=== PATIENT | male | born 1950 | race Caucasian/White ===

== ENCOUNTER → 2019-09-18 07:55 | Outpatient (CLI) | payer OTHER, MEDICARE | END | disposition home or self-care (01) | LOC: D.HCCECHO 07:55 → D.HCCARDIO 09:00 | PROVIDERS: ATTEND Internal Medicine Cardiovascular Disease | DX: I20.9 Angina pectoris, unspecified (principal) ==

== ENCOUNTER 2019-10-07 07:05 | Outpatient (CLI) | payer OTHER, MEDICARE ==
[~2019-10-07] VITALS: Ht 180.3 cm; Wt 79.5 kg
--- NOTE | ~2019-10-07 | HEMODYNAMI ---
PATIENT:DANIEL ACOSTA MEDICAL RECORD: [id number] : 50 LOCATION:[facility] ADMISSION DATE: 10/07/19 Generatedon:10/07/20199:40 Patient name: DANIEL ACOSTA Patient #: [id number] SSN: [id number] : 1950 Date of study: 10/07/2019 Page: Of Hemodynamic Procedure Report Patient Data Patient Demographics Procedure consent was obtained First Name: DANIEL Gender: Male Last Name: DAVE : 1950 Patient #: [id number] Age: 69 year(s) Race: SSN: [id number] Additional ID: [id number] Contact details [address]: [address] [place] [address] State: [place] City: [place] Zip code: [address] Past Medical History Performed procedures and imaging results Date Procedure Procedure Results Comments 09/18/2019 Stress testing Positive->Intermediate with SPECT MPI risk Allergies Allergen Reaction Date Comments Reported Other allergy 10/07/2019 PRAZOSIN Admission Admission Data Admission Date: 10/07/2019 Admission Time: 7:05 Arrival Date: 10/07/2019 Arrival Time: 0:00 Admit Source: Other Insurance Payor: Private health insurance [facility] #: [id number] Height (in.): 71 BSA: 1.99 (m2) Height (cm.): 180.34 BMI: 24.46 (kg/m2) Weight (lbs.): 175.36 Weight (kg.): 79.54 Lab Results Lab Result Date: 10/07/2019 Lab Result Time: 0:00 Biochemistry Name Units Result Min Max BUN mg/dl 16 --(---*)-- 7 18 Creatinine mg/dl 0.9 --(-*--)-- 0.6 1.3 eGFR ml/min 88.54588 -*(----)-- 90 120 NONAFRICAN CBC Name Units Result Min Max Hematocrit % 41.2 -*(----)-- 42 54 Hemoglobin g/dl 13.6 --(*---)-- 13.5 17.5 Procedure Procedure Types Cath Procedure Diagnostic Procedure [facility] w[facility] Procedure Description Procedure Date Procedure Date: 10/07/2019 Procedure Start Time: 9:25 Procedure End Time: 9:39 Procedure Staff Name Function Jg Gomez MD Performing Physician Elder Caruso RN Nurse Celina Acuña RT Monitor Kang Mendosa RT Scrub Procedure Data Cath Procedure Fluoroscopy Diagnostic fluoroscopy Total fluoroscopy Time: 2.4 time: 2.4 min min Diagnostic fluoroscopy Total fluoroscopy dose: 464 dose: 464 mGy mGy Contrast Material Contrast Material Type Amount (ml) Isovue 370 53 Entry Location Entry Primary Successful Side Size Upsize Upsize Entry Closure [place] ccessful Closure Location (Fr) 1 (Fr) 2 (Fr) Remarks Device Remarks Radial Right 6 Fr Mechanical artery Short Compression Estimated blood loss: 5 ml Diagnostic catheters Device Type Used For End Catheter Placement DIAGNOSTIC Hung 110cm Procedure 5Fr catheter ([id number]) Procedure Complications No complications Procedure Medications Medication Administration Route Dosage 0.9% NaCl I.V. 100 ml/hr Oxygen etCO2 Nasal cannula 2 l/min Heparin Flush Bag added to field 2 bags (1000units/500ml NS) Lidocaine 2% added to field 20 Radial Cocktail added to field 1 syringe (Verapamil 2mg/Nitro 400mcg/Heparin 1500units) Versed I.V. 2 mg Fentanyl I.V. 100 mcg Radial Cocktail I.A. 1 syringe (Verapamil 2mg/Nitro 400mcg/Heparin 1500units) Hemodynamics Rest BSA: 1.99 (m2) HGB: 13.6 (g/dl) O2 Consumption: Estimated: 227.08 (ml/min) O2 Co nsumption indexed: Estimated:114.11 (ml/min/m) Heart Rate: 65 (bpm) Pressure Samples Time Site Value (mmHg) Purpose Heart Use Rate(bpm) 9:30 LV 102/16,25 Snapshot 87 Gradients Valve Time Site Site Mean SEP/DFP Peak To Heart Use 1 2 (mmHg) (sec/min) Peak Rate (mmHg) (bpm) Aortic 9:31 LV AO 89 Snapshots Pre Cath Intra NCS Post Cath Vital Signs Time Heart Resp SPO2 etCO2 NIBP (mmHg) Rhythm Pain Sedation Rate (ipm) (%) (mmHg) Status Level (bpm) 9:10:48 66 13 100 0 136/84(100) NSR 0 (11) 10(A) , No pain 9:15:02 68 17 99 34.3 134/83(112) NSR 0 (11) 10(A) , No pain 9:19:16 65 11 99 39.5 139/81(99) NSR 0 (11) 10(A) , No pain 9:23:28 69 19 98 0 123/81(98) NSR 0 (11) 10(A) , No pain 9:27:44 72 10 97 11.2 132/85(95) NSR 0 (11) 9(A) , No pain 9:32:02 74 10 98 36.5 135/64(89) NSR 0 (11) 9(A) , No pain 9:36:16 71 10 98 35 120/75(88) NSR 0 (11) 10(A) , No pain Medications Time Medication Route Dose Verified Delivered Reason Notes Effectiveness by by 9:09:41 0.9% NaCl I.V. 100 Elder Elder Per ml/hr Zuly Caruso physician RN RN 9:09:54 Oxygen etCO2 2 l/min Elder Elder for low 02 Nasal Lorigan Lorigan sats cannula RN RN 9:10:05 Heparin Flush added 2 bags Elder Elder used for Bag to Zuly Caruso procedure (1000units/500ml field RN RN NS) 9:10:16 Lidocaine 2% added 20ml Elder Elder for local to vial Lorigan Lorigan anesthetic field RN RN 9:10:28 Radial Cocktail added 1 Elder Elder used for (Verapamil to syringe Sruthiigan Zuly procedure 2mg/Nitro field RN RN 400mcg/Heparin 1500units) 9:22:38 Versed I.V. 2 mg Elder Elder for sedation Zuly Caruso RN RN 9:22:47 Fentanyl I.V. 100 mcg Elder Elder for sedation Zuly Caruso RN RN 9:29:40 Radial Cocktail I.A. 1 Elder Jg for (Verapamil syringe Zuly Gomez MD vasodilation 2mg/Nitro RN 400mcg/Heparin 1500units) Procedure Log Time Note 8:40:55 Informed consent obtained and on chart 8:41:32 Diagnostic Cath Status : Elective 8:41:42 Arrival Date: 10/07/2019 12:00:00 AM 8:41:42 Admit Source: Other 8:41:45 Patient Height : 71 inches 8:42:19 Patient Weight : 175.36 lbs 8:42:28 Insurance Payor : Private health insurance 8:51:46 Lab Result : Creatinine 0.9 mg/dl 8::46 Lab Result : BUN 16 mg/dl 8::46 Lab Result : eGFR NONAFRICAN 88.36705 ml/min 8:51:46 Lab Result : Hematocrit 41.2 % 8::46 Lab Result : Hemoglobin 13.6 g/dl 8:52:12 ACC Patient presents with No angina; no symptoms CCS Anginal Class 2--Slight limitation of ordinary activity. 8:52:16 Procedure Status Elective Heart Cath (OP). 8:52:24 Time tracking: Regular hours (M-F 7:00 - 5:00) 8:52:29 Plan of Care:Hemodynamics will remain stable., Cardiac rhythm will remain stable., Comfort level will be maintained., Respiratory function will remain adequate., Patient/ family verbilizes understanding of procedure., Procedure tolerated without complication., Recovers from procedure without complications.. 8:52:44 H&P Date Dictated: 09/08/2019 Within 30 days and on chart.. 8:52:45 Pre-procedure instructions explained to patient. 8:52:46 Pre-op teaching completed and patient verbalized understanding. 8:52:48 Family in patients room. 8:52:49 Patient NPO since Midnight. 8:53:13 Patient allergic to Other allergyPRAZOSIN 8:53:35 Stress Test: yes; abnormal ANTERIOR, AND INFERIOR 8:53:39 Alarms reviewed by R. N. 8:53:39 Sharps counted by scrub and verified by R.N. 8:53:43 Lab results completed and on chart. 8:56:00 Elder Caruso RN sent for patient. Start room use. 8:56:57 Is the patient allergic to Iodine/contrast media? No. 8:57:00 Was the patient premedicated? Yes 8:57:01 Is patient on blood thinner?No 9:09:38 Patient received from Pre/Post Procedure Room to CCL 1 Alert and oriented. Tansferred to table in Supine position. 9:09:39 Warm blankets applied, and vaibhav hugger turned on for patient comfort. 9:09:39 Correct patient and procedure confirmed by team. 9:09:40 ECG and BP/O2 sat monitors applied to patient. 9:09:41 0.9% NaCl 100 ml/hr I.V. was administered by Elder Caruso RN; Per physician; Verbal order read back and verified. 9:09:42 Full Disclosure recording started 9:09:43 Vital chart was started 9:09:47 Baseline sample Acquired. 9:09:51 Rhythm: sinus rhythm 9:09:54 Oxygen 2 l/min etCO2 Nasal cannula was administered by Elder Caruso RN; for low 02 sats; Verbal order read back and verified. 9:09:59 Patient diabetic? No. 9:10:01 If diabetic: On Metformin? N/A 9:10:02 ----Pre-sedation anethsthesia assessment.---- 9:10:05 Heparin Flush Bag (1000units/500ml NS) 2 bags added to field was administered by Elder Caruso RN; used for procedure; Verbal order read back and verified. 9:10:05 Previous problem with sedation/anesthesia? No ? 9:10:06 Snore? Yes 9:10:07 Sleep apnea? Unknown 9:10:08 Deviated septum? No 9:10:09 Opens mouth fully? Yes 9:10:10 Sticks out tongue? Yes 9:10:13 Airway obstruction? No ? 9:10:15 Dentures? No ? 9:10:16 Lidocaine 2% 20ml vial added to field was administered by Elder Caruso RN; for local anesthetic; Verbal order read back and verified. 9:10:20 Pre procedure: right dorsailis pedis pulse 2+ Normal; easily identifiable; not easily obliterated 9:10:22 Modified Alex's test Ulnar < 7 seconds 9:10:24 Patient pain scale 0/10 ?. 9:10:28 Radial Cocktail (Verapamil 2mg/Nitro 400mcg/Heparin 1500units) 1 syringe added to field was administered by Elder Caruso RN; used for procedure; Verbal order read back and verified. 9:10:30 IV patent on arrival in left antecubital with 0.9% NaCl at O. 9:10:35 Right Radial & Right Groin area was prepped with chlora-prep and draped in sterile fashion 9:10:38 Use device set Radial Dx or PCI 9:15:17 ACIST Syringe (29789) opened to sterile field. 9:15:18 Medline Cath Pack ([id number]) opened to sterile field. 9:15:18 Bag Decanter (2002S) opened to sterile field. 9:15:19 ACIST Hand Control (46555) opened to sterile field. 9:15:19 ACIST Manifold (54791) opened to sterile field. 9:15:20 MBrace Wrist Support ([id number]) opened to sterile field. 9:15:21 NEEDLE Cook 21G 4cm Radial ([id number]) opened to sterile field. 9:15:22 EMERALD Guide Wire (502-755) opened to sterile field. 9:15:22 SHEATH 6FR RAIN ([id number]) opened to sterile field. 9:18:50 --------ALL STOP TIME OUT------ 9:18:51 Final Timeout: patient, procedure, and site verified with staff and physician. All members of the team are in agreement. 9:18:53 Right Radial & Right Groin site verified by team. 9:18:57 Fire Safety Assessment: A--An alcohol-based skin anteseptic being used preoperatively., C--Open oxygen or nitrous oxide is being used., D--An ESU, laser, or fiber-optic light is being used. 9:19:01 Physical assessment completed. ASA score P 2 - A patient with mild systemic disease as per Jg Gomez MD. 9:19:06 2) 60-89 Mildly reduced kidney function, and other findings (as for stage 1) point to kidney disease. 9:19:10 Maximum allowable contrast dose (3.7 X eGFR X 0.75)247 ml. 9:19:14 Sedation plan: IV Moderate Sedation Medication:Versed, Fentanyl 9:20:42 Zero performed for pressure channel P1 9::38 Versed 2 mg I.V. was administered by Elder Caruso RN; for sedation; Verbal order read back and verified. 9:22:47 Fentanyl 100 mcg I.V. was administered by Elder Caruso RN; for sedation; Verbal order read back and verified. 9:25:20 Procedure started. 9:25:26 Local anesthetic to right radial artery with Lidocaine 2% by Jg Gomez MD.INITIAL ACCESS ONLY 9:25:57 A DIAGNOSTIC Hung 110cm 5Fr catheter ([id number]) was advanced over the wire and used for Procedure. 9::29 A 6 Fr Short sheath was inserted into the Right Radial artery 9::32 Zero performed for pressure channel P1 9:29:40 Radial Cocktail (Verapamil 2mg/Nitro 400mcg/Heparin 1500units) 1 syringe I.A. was administered by Jg Gomez MD; for vasodilation; Verbal order read back and verified. 9:30:19 LV gram done using CONDON 9:30:22 Injector settings: Ml/sec: 5, Volume: 15, 9:30:38 LV hemodynamics recorded. 9:31:09 EF : 55 % 9:32:11 LCA angiography performed. 9:32:15 Injector settings: Ml/sec: 3, Volume: 6, 9:33:29 RCA angiography performed. 9:33:42 Injector settings: Ml/sec: 3, Volume: 6, 9:33:55 ACCDominant side:Right 9:36:30 Catheter removed. 9:36:43 ZEPHYR REGULAR TR BAND ([id number]) opened to sterile field. 9:36:52 Sheath removed intact; hemostasis achieved with Mechanical Compression to the Right Radial artery. 9:36:54 Procedure ended.(Physican Out) 9:37:10 Fluoroscopy time 02.40 minutes. 9:37:14 Fluoroscopy dose: 464 mGy 9:37:14 Flurop Dose total: 464 9:37:20 Dose Area Product 87558 mGy/cm. 9:37:25 Contrast amount:Isovue 370 53ml. 9:37:36 Maximum allowable dose exceeded? No. 9:37:37 Sharps counted by scrub and verified by R.N. 9:37:40 Tignall band inflated with 10cc of air. 9:37:43 Post Procedure Pulses reassessed and unchanged 9:37:47 Post procedure: right dorsailis pedis pulse 2+ Normal; easily identifiable; not easily obliterated. 9:37:52 Post-procedure physical assessment completed. ASA score P 2 - A patient with mild systemic disease as per Jg Gomez MD. 9:37:55 Post procedure rhythm: unchanged. 9:38:02 Estimated blood loss: 5 ml 9:38:18 Post procedure instruction explained to patient.Patient verbalizes understanding. 9:38:19 Patient needs reinforcement of post procedure teaching. 9:38:51 Procedure and supply charges have been captured, reviewed, submitted and are correct. 9:38:57 Procedure Complication : No complications 9:39:00 [facility] Findings: mild to moderate CAD (<70%) 9:39:04 Operative report dictated upon procedure completion. 9:39:05 See physician's report for complete and final results. 9:39:07 Report given to Pre/Post Procedure Room. 9:39:10 Patient transfered to Pre/Post Procedure Room with Stretcher. 9:39:12 Vital chart was stopped 9:39:14 Procedure ended. 9:39:14 Full Disclosure recording stopped 9:39:28 End room use (Document Last) 9:39:38 End room use (Document Last) 9:40:00 End room use (Document Last) Device Usage Item Name Manufacture Quantity Catalog Hospital Part Current Minima l Lot# / Number Charge Number Stock Stock Serial# Code ACIST Acist 1 47154 [id number] [id number] 20 Syringe Medical (45024) Systems Inc Medline Medline 1 [id number] 439209 88115 604440 5 Cath Pack ([id number]) Bag Microtek 1 991897 52667 078683 5 Decanter Medical Inc. () ACIST Hand Acist 1 50075 110637 212988 857941 5 Control Medical (19925) Systems Inc ACIST Acist 1 68068 179982 683419 327350 5 Manifold Medical (45756) Systems Inc MBrace Advanced 1 140-0250-00 384891 43498 104545 5 Wrist Vascular Support Dynamics ([id number]) NEEDLE Cook Cook Medical 1 [id number] 913150 472005 683804 5 21G 4cm Radial (B32737) EMERALD Cardinal 1 502-455 294727 217884 936381 5 Guide Wire Health (175-455) SHEATH 6FR Cardinal 1 6274130 958440 6731014 343901 5 [facility] (7813825) DIAGNOSTIC Terumo 1 405023 403788 063739 483450 5 Hung 110cm 5Fr catheter (003576) ZEPHYR Cardinal 1 675145 955357 6615748 371522 5 REGULAR TR Health BAND (808830) Signature Audit [place] Stage Time Signature Unsigned Intra-Procedure 10/07/2019 Celina Acuña 9:39:38 AM RT(R) Intra-Procedure 10/07/2019 Eledr 9:40:01 AM Zuly MCKEON Intra-Procedure 10/07/2019 Jg Gomez MD 9:40:23 AM [place] [id number] [place] [id number]
[2019-10-07] MEDS ORDERED: BENICAR20 MG PO (07:48)
[2019-10-07] MEDS ORDERED: PREDNISONE5 MG PO (07:48)
[2019-10-07] MEDS ORDERED: OMEPRAZOLE20 M1 PO (07:49)
[2019-10-07] MEDS ORDERED: PROSCAR5 MG PO (07:49)
[2019-10-07] MEDS ORDERED: HUMIRA SQ (07:50)
[2019-10-07] MEDS ORDERED: BAYER CHEWABLE81 MG PO (07:52)
[2019-10-07] MEDS ORDERED: FOLIC ACID1 MG PO (07:52)
[2019-10-07] MEDS ORDERED: LIPITOR20 MG PO (07:52)
[2019-10-07] MEDS ORDERED: METHOTREXATE2.5 MG PO (07:52)
[2019-10-07 08:11] VITALS: BP 134/74; Ht 180.3 cm; Wt 79.5 kg
[2019-10-07 08:22] LABS: BASOPHILS 0.5 % (0-2); EOSINOPHILS 2.7 % (0-7); HEMATOCRIT 41.2 % (42.0-54.0); HEMOGLOBIN 13.6 g/dL (13.5-17.5); LYMPHOCYTES 33.6 % (15-50); MCH 32.7 pg (26.0-34.0); MEAN PLATELET VOLUME 9.6 fL (7.4-10.4); MONOCYTES 12.2 % (2-11); PLATELET COUNT 259 10x3/uL (130-400); RBC 4.16 10x6/uL (4.20-6.10); RDW 13.7 % (11.5-14.5); WBC 5.6 10x3/uL (4.8-10.8)
[2019-10-07 08:43] LABS: ALT (SGPT) 26 U/L (10-68); CALC OSMOLALITY 283 mosm/kg (275-300); CALCIUM 8.4 mg/dL (8.5-10.1); CHLORIDE - SERUM 106 mmol/L (98-107); CHOL - HDL RATIO 3.7 ratio (2.3-4.9); CHOLESTEROL, TOTAL 213 mg/dL (0-200); CREATININE - SERUM 0.9 mg/dL (0.6-1.3); GLUCOSE 91 mg/dL (74-106); HDL CHOLESTEROL 58 mg/dL (32-96); LDL CHOLESTEROL 125 mg/dL (0-100); LDL-HDL RATIO 2.2 ratio (1.5-3.5); POTASSIUM - SERUM 3.7 mmol/L (3.5-5.1); SODIUM 142 mmol/L (136-145); TRIGLYCERIDE 154 mg/dL (30-200); UREA NITROGEN 16 mg/dL (7-18); eGFR NON AFRICAN AMERICAN 89 mL/min (90-120)
--- NOTE | 2019-10-07 09:50 | NUR ---
PT ARRIVED BY STRETCHER. PLACED ON MONITORS. ASSESSMENT COMPLETED. VSS AT THIS TIME. CALL LIGHT WITHIN REACH. AT BEDSIDE.
[2019-10-07] MEDS ORDERED: ISOSORBIDE MONO30 M1 PO (09:56)
--- NOTE | 2019-10-07 10:05 | NUR ---
PT TOLERATING SIPS OF COFFEE. DENIES NAUSEA/PAIN AT THIS TIME. CALL LIGHT WITHIN REACH. RIGHT WRIST Z BAND IN PLACE. NO BLEEDING/HEMATOMA NOTED. VSS AT THIS TIME.
--- NOTE | 2019-10-07 10:35 | NUR ---
PT RESTING COMFORTABLY. VSS. CALL LIGHT WITHIN REACH. RIGHT WRIST Z BAND IN PLACE. NO BLEEDING/HEMATOMA NOTED. FAMILY AT BEDSIDE
--- NOTE | 2019-10-07 11:00 | NUR ---
RIGHT WRIST BRACE IN PLACE. NO BLEEDING/HEMATOMA NOTED. CALL LIGHT WITHIN REACH. VSS AT THIS TIME. PT SET UP WITH SANDWICH TRAY AND COFFEE. DENIES NAUSEA/PAIN.
--- NOTE | 2019-10-07 11:30 | NUR ---
2cc OF AIR REMOVED FROM Z BAND. NO BLEEDING/HEMATOMA NOTED. CALL LIGHT WITHIN REACH. VSS AT THIS TIME.
--- NOTE | 2019-10-07 11:45 | NUR ---
3cc OF AIR REMOVED FROM Z BAND. NO BLEEDING/HEMATOMA NOTED. CALL LIGHT WITHIN REACH. VSS AT THIS TIME.
--- NOTE | 2019-10-07 12:00 | NUR ---
4cc OF AIR REMOVED FROM Z BAND. NO BLEEDING/HEMATOMA NOTED. CALL LIGHT WITHIN REACH. VSS AT THIS TIME. FAMILY AT BEDSIDE.
--- NOTE | 2019-10-07 12:15 | NUR ---
Z BAND REMOVED AND DRESSING APPLIED. NO BLEEDING/HEMATOMA NOTED. RIGHT WRIST BRACE IN PLACE. PIV D/C'D WITH CATH TIP INTACT. TOLERATED WELL. PT INSTRUCTED TO GET UP AND DRESSED AT THIS TIME. FAMILY AT BEDSIDE TO ASSIST.
--- NOTE | 2019-10-07 12:25 | NUR ---
DISCUSSED DISCHARGE INSTRUCTIONS WITH PT AND PT'S . THEY VOICED UNDERSTANDING. CALL LIGHT WITHIN REACH. PT AMBULATED TO RESTROOM. VOIDED WITHOUT DIFFICULTY. STEADY GAIT NOTED.
--- NOTE | 2019-10-07 12:30 | NUR ---
RIGHT WRIST DRESSING C/D/I. NO S/S OF HEMATOMA NOTED. PT TAKEN DOWN TO VEHICLE BY WHEELCHAIR. NO S/S OF DISTRESS NOTED. ALL BELONGINGS AND PAPERWORK IN HAND.
== END 2019-10-07 12:30 | disposition home or self-care (01) ==
LOC: D.CATH 07:05
PROVIDERS: ATTEND Internal Medicine Cardiovascular Disease
DX: I25.119 Atherosclerotic heart disease of native coronary artery with unspecified angina pectoris (principal); R94.39 Abnormal result of other cardiovascular function study; E78.5 Hyperlipidemia, unspecified; I10 Essential (primary) hypertension; Z82.49 Family history of ischemic heart disease and other diseases of the circulatory system